=== PATIENT | male | born 1995 ===

== ENCOUNTER → 2021-04-28 | Outpatient (CLI) | payer OTHER ==
--- NOTE | 2021-04-28 15:49 | REP ---
INDICATION: PAIN COMPARISON: None TECHNIQUE: Five views FINDINGS: The compartments are symmetric and well maintained. There is no fracture, dislocation, or subluxation. IMPRESSION: Within normal limits <Electronically signed by Kb Davis > 04/28/21 [id number]
== END ==
LOC: M WUC 15:27
PROVIDERS: ATTEND Physician Assistant
DX: M25.561 Pain in right knee (principal)